=== PATIENT | female | born 1965 | race African-American/Black ===

== ENCOUNTER 2022-09-09 04:33 | Emergency (ER) | payer MEDICAID ==
[~2022-09-09] VITALS: Ht 170.2 cm; Wt 109.0 kg
[2022-09-09 04:48] VITALS: BP 135/60; PULSE 63; RESP 16; TEMP 97.9; O2SAT 100
[2022-09-09] MEDS ORDERED: MORPHINE SULFATE 4 MG/ML CPJ (NOT FOR IM USE) IV ONE (05:30)
[2022-09-09 05:51] LABS: BASOPHILS % 0.5 % (0.0-2.0); EOSINOPHILS % 0.8 % (0.0-5.0); HEMATOCRIT. 38.6 % (36.0-48.0); HEMOGLOBIN. 12.8 g/dL (12.0-16.0); LYMPHOCYTES % 15.4 % (20.0-50.0); MEAN CORPUSCULAR HEMOGLOBIN 25.9 pg (28.0-32.0); MEAN CORPUSCULAR VOLUME 77.9 fL (81.0-99.0); MEAN PLATELET VOLUME 9.4 fl (7.4-10.4); MONOCYTES % 9.3 % (2.0-8.0); PLATELET 201 x1000/uL (130-400); RED BLOOD CELL COUNT 4.95 mill/uL (4.2-5.4)
[2022-09-09 06:02] LABS: CLARITY URINE TURBID (CLEAR); COLOR URINE DARK YELLOW (YELLOW); KETONES URINE NEGATIVE (NEGATIVE); LEUKOCYTE ESTERASE URINE 3+ (NEGATIVE); NITRITE URINE POSITIVE (NEGATIVE); OCCULT BLOOD URINE 2+ (NEGATIVE); PH URINE 5.5 (4.5-8.0); PROTEIN URINE 3+ (NEGATIVE); SPECIFIC GRAVITY URINE 1.016 (1.005-1.030)
[2022-09-09 06:13] LABS: CHLORIDE 104 mEq/L (98-107)
[2022-09-09] MEDS ORDERED: CEFTRIAXONE 1GM PREMIX 50 ML IV ONE (06:30)
[2022-09-09 06:37] LABS: HCG SCREEN NEGATIVE
[2022-09-09] MEDS ORDERED: DIPHENHYDRAMINE 50MG/ML VIAL IV ONE (06:45)
[2022-09-09] MEDS ORDERED: TOPUD PO (07:23)
[2022-09-09] MEDS ORDERED: NITR100C PO (07:23)
[2022-09-09] MEDS ORDERED: PHEN-815 PO ×3 (09:49)
[2022-09-09] MEDS ORDERED: PHENAZOPYRIDINE HCL 100MG TABLET PO ONE (10:00)
== END 2022-09-09 10:08 | disposition home or self-care (01) ==
LOC: ER 04:53
DX: N39.0 Urinary tract infection, site not specified (principal); I10 Essential (primary) hypertension; E11.9 Type 2 diabetes mellitus without complications; J45.909 Unspecified asthma, uncomplicated
CPT/HCPCS: 80053; 81003; 84703; 83690; 85025; 87086; 87186; 84484; 36415; 74176; 93005; 96365; 96375; 99285; J0696; J2270; Z7610 ×2; J1200